=== PATIENT | female | born 1965 | race Caucasian/White ===

== ENCOUNTER → 2025-01-10 | Outpatient (CLI) | payer OTHER ==
--- NOTE | 2025-01-10 16:57 | US ---
EXAMINATION TYPE: US pelvis complete transvag DATE OF EXAM: 01/10/2025 COMPARISON: NONE CLINICAL INDICATION: Female, 59 years old with history of R10.9 UNSPECIFIED ABDOMINAL PAIN; Pelvic pa in, R>L TECHNIQUE: Transvaginal (TV) and Transabdominal (TA) . Transabdominal grayscale sonographic images of the pelvis were acquired. Transvaginal sonographic im ages were medically necessary to better assess the following anatomy: Uterus, endometrium, and ovarie s Doppler imaging: Not performed. FINDINGS: Date of LMP: 20 years ago EXAM MEASUREMENTS: Uterus: 9.9 x 6.7 x 9.0 cm Endometrial Stripe: 0.5 cm Right Ovary: 2.4 x 0.9 x 1.3 cm Left Ovary: 2.4 x 1.7 x 2.1 cm 1. Uterus: Anteverted. Multiple fibroids. A heterogeneous, mildly lobulated lesion, centrally loca tamar within the left uterine body may have a submucosal component and measures 4.0 x 2.5 x 4.2 cm ; pr ominent fluid within cervix 2. Endometrium: Estimated 5 mm which would be within normal limits. 3. Right Ovary: wnl 4. Left Ovary: wnl 5. Bilateral Adnexa: wnl 6. Posterior cul-de-sac: wnl IMPRESSION: 1. Bulky fibroid uterus. 2. Suspect a heterogeneous, lobulated 4.2 cm fibroid centrally located towards the left within the ut erine body. Possible submucosal component. A mucosal lesion is difficult to entirely exclude. Correla te for any postmenopausal bleeding. Further assessment with female pelvic MRI or hysterosonography co uld be considered to exclude an endometrial abnormality. 3. Prominent fluid within the endocervical canal, abnormal in a postmenopausal female. [facility], , 01/10/2025 4:55 PM
--- NOTE | 2025-01-10 17:04 | US ---
EXAMINATION TYPE: US abdomen complete DATE OF EXAM: 01/10/2025 COMPARISON: NONE CLINICAL INDICATION: Female, 59 years old with history of R10.9 UNSPECIFIED ABDOMINAL PAIN; Lower abd ominal pain, R>L x few weeks. Patient denies any other signs, symptoms, or relevant history TECHNIQUE: Grayscale and color Doppler imaging of the abdomen was performed. FINDINGS: EXAM MEASUREMENTS: Liver Length: 14.0 cm Gallbladder Wall: 0.2 cm CBD: 5.5 mm, color Doppler imaging was utilized to isolate the common bile duct for measurement. 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 Liver: wnl, no dilated ducts, masses or cysts. Gallbladder: wnl Evidence for sonographic Zhang's sign: No CBD: Upper limits of normal in caliber. Spleen: wnl Right Kidney: wnl, No hydronephrosis, calculi or masses seen; extrarenal pelvis. Left Kidney: wnl, No hydronephrosis, calculi or masses seen Upper IVC: wnl Abd Aorta: wnl IMPRESSION: 1. Targeted scanning at the patient's midline pelvis along shows a 7.0 x 4.1 x 1.4 cm oval mass possi guero overlying the abdominal wall musculature. Further CT evaluation recommended. Tissue sampling may be indicated depending on findings on CT. 2. Bile duct upper limits of normal in caliber at 5.5 mm, acceptable given patient's age. [facility], , 01/10/2025 5:02 PM
== END | disposition home or self-care (01) ==
LOC: RADUSWWP 13:56
PROVIDERS: ATTEND Family Medicine
DX: D25.9 Leiomyoma of uterus, unspecified (principal); Z78.0 Asymptomatic menopausal state
CPT/HCPCS: 76700; 76830; 76856

== ENCOUNTER → 2025-02-11 | Outpatient (CLI) | payer OTHER ==
--- NOTE | 2025-02-11 20:05 | CT ---
EXAMINATION TYPE: CT abdomen pelvis wo/w con, MR pelvis wo/w con DATE OF EXAM: 02/11/2025 5:33 PM COMPARISON: MR pelvis same day. CLINICAL INDICATION: Female, 59 years old with history of D25.9 LEIOMYOMA OF UTERUS, UNSPECIFIED; Abn ormal ultrasound findings, recent lower abdominal pain TECHNIQUE: Axial CT abdomen pelvis wo/w con, MR pelvis wo/w con;Sagittal and coronal reformats were created on a separate workstation. MRI imaging of the pelvis with and without contrast. 6.5 cc Gadobutrol was given. Contrast used:100ml mL of Isovue 300 with IV Contrast, (none if empty) Oral contrast used: with Oral Contrast (none if empty) CT DLP: 736.7 mGycm, Automated exposure control for dose reduction was used. FINDINGS: LOWER CHEST: Bilateral breast implants partially visualized. ABDOMEN LIVER: Unremarkable GALLBLADDER AND BILE DUCTS: Unremarkable. PANCREAS: Unremarkable. SPLEEN: Unremarkable. ADRENAL GLANDS: Unremarkable. KIDNEYS AND URETERS: No evidence of hydronephrosis or obstructing renal calculus. The ureters are unr emarkable. PELVIS BLADDER: No evidence for wall thickening or mass given limitations of exam. REPRODUCTIVE: Multiple uterine fibroids are present. The uterus measures 9.4 x 6.6 x 9.0 cm. There ar e multiple fibroids present some of which may be submucosal. The fibroids enhance to various degrees and postcontrast MRI imaging. The ovaries are not well appreciated on MRI imaging. Endometrium measur es within normal limits for thickness. ABDOMEN & PELVIS STOMACH AND BOWEL: No evidence of bowel obstruction. PERITONEUM/RETROPERITONEUM: No evidence of pneumoperitoneum or free fluid. VASCULATURE: No evidence of aortic aneurysm. MUSCULOSKELETAL: No acute osseous abnormalities LYMPH NODES: No gross evidence for lymphadenopathy. SOFT TISSUE/ABDOMINAL WALL: There is mass along the subcutaneous tissues just anterior to the rectus abdominis musculature measuring 6.5 x 1.9 cm and extending 3.9 cm in caudocranial dimension. On MRI i maging images mildly increased T2 signal and high intrinsic T1 signal. Postcontrast MR imaging demons trates no significant enhancement. IMPRESSION: 1. Anterior abdominal wall mass demonstrating intrinsic high T1 signal suggesting hemorrhagic/protei naceous cyst. No central enhancement definitively visualized however there is no subtraction imaging performed given its intrinsic high T1 signal. Tissue sampling ultimately recommended. 2. No acute abdominal or pelvic process. 3. Fibroid uterus. 4. Nonvisualization the ovaries possibly atrophic. 5. Endometrium is within normal limits for thickness. [facility], , 02/11/2025 8:02 PM
== END | disposition home or self-care (01) ==
LOC: RADCTMAIN 15:35
PROVIDERS: ATTEND Family Medicine
DX: D25.9 Leiomyoma of uterus, unspecified (principal); N85.00 Endometrial hyperplasia, unspecified
CPT/HCPCS: 74178; 72197; Q9967; A9585